=== PATIENT | female | born 1960 | race African-American/Black ===

== ENCOUNTER 2017-07-24 17:18 | Emergency (ER) | payer OTHER ==
[~2017-07-24] VITALS: Ht 180.3 cm; Wt 95.5 kg
[2017-07-24 17:34] VITALS: BP 133/94
== END 2017-07-24 19:40 | disposition left against medical advice (07) ==
LOC: EMS 17:22
DX: M54.6 Pain in thoracic spine (principal); G89.29 Other chronic pain; M19.90 Unspecified osteoarthritis, unspecified site; F17.210 Nicotine dependence, cigarettes, uncomplicated; Z53.21 Procedure and treatment not carried out due to patient leaving prior to being seen by health care provider

== ENCOUNTER 2018-02-02 11:40 | Emergency (ER) | payer MEDICAID, OTHER ==
[~2018-02-02] VITALS: Ht 180.3 cm; Wt 88.6 kg
[2018-02-02] MEDS ORDERED: METH10 PO (12:16)
[2018-02-02] MEDS ORDERED: CLON-570 PO (12:16)
[2018-02-02] MEDS ORDERED: BUPR100 PO (12:16)
[2018-02-02] MEDS ORDERED: BACITRACIN 0.9 GM PACKET OINTMENT TP ONE (13:00)
[2018-02-02 13:06] VITALS: BP 160/103
== END 2018-02-02 13:56 | disposition home or self-care (01) ==
LOC: EMS 11:50
DX: L73.9 Follicular disorder, unspecified (principal); F17.210 Nicotine dependence, cigarettes, uncomplicated; M19.90 Unspecified osteoarthritis, unspecified site; Z79.899 Other long term (current) drug therapy
CPT/HCPCS: 99282

== ENCOUNTER 2018-12-16 10:29 | Emergency (ER) | payer MEDICAID ==
[~2018-12-16] VITALS: Ht 180.3 cm; Wt 84.1 kg
[~2018-12-16 10:29] MED LIST: BUPR100 PO; CLON-570 PO; METH10 PO
[2018-12-16] MEDS ORDERED: AMLO-511 PO (10:45)
[2018-12-16] MEDS ORDERED: DIAZEPAM 5 MG TABLET PO ONE (11:30)
[2018-12-16] MEDS ORDERED: KETOROLAC TROMETHAMINE 30 MG/ML VIAL IM ONE (11:30)
[2018-12-16 13:41] VITALS: BP 136/86
== END 2018-12-16 14:30 | disposition home or self-care (01) ==
LOC: EMS 10:31
DX: M54.5 Low back pain (principal); M19.90 Unspecified osteoarthritis, unspecified site; G89.29 Other chronic pain; F17.210 Nicotine dependence, cigarettes, uncomplicated
CPT/HCPCS: 96372; 99283; J1885

== ENCOUNTER 2022-07-10 08:03 | Emergency (ER) | payer MEDICAID ==
[~2022-07-10] VITALS: Ht 175.3 cm; Wt 84.1 kg
[~2022-07-10 08:03] MED LIST changes: +AMLO-257 PO; +BUPR-345 PO; -BUPR100 PO; -CLON-570 PO; +CLON0.1T2 PO
[2022-07-10] MEDS ORDERED: BUSP5TAB20 PO (08:26)
[2022-07-10] MEDS ORDERED: HYDR-4808 PO (08:26)
[2022-07-10 09:57] LABS: HEMATOCRIT 43.4 % (36-46); LYMPHOCYTES # (AUTO) 0.8 K/uL (1.0-4.8); LYMPHOCYTES % (AUTO) 29.3 % (22.0-44.0); MEAN CORPUSCULAR HGB CONC 32.3 G/dL (31.0-37.0); MEAN CORPUSCULAR VOLUME 84 fL (80-100); MONOCYTES # (AUTO) 0.4 K/uL (0.1-1.0); MONOCYTES % (AUTO) 14.7 % (2.0-9.0); NEUTROPHILS # (AUTO) 1.4 K/uL (1.8-7.7); PLATELET COUNT (AUTO) 197 K/uL (150-450); RED BLOOD CELL COUNT(AUTO) 5.18 MIL/uL (4.00-5.20); RED CELL DISTRIBUTION WIDTH 14.2 % (11.5-14.5)
[2022-07-10 10:22] LABS: ANION GAP 9 mmol/L (8-16); CALCIUM, TOTAL 9.7 mg/dL (8.8-10.5); CARBON DIOXIDE 26 mmol/L (22-29); CHLORIDE 103 mmol/L (98-107); CREATININE 0.92 mg/dL (0.60-1.30); GLUCOSE,RANDOM 93 mg/dL (70-110); POTASSIUM 3.9 mmol/L (3.5-5.1); SODIUM SERUM 138 mmol/L (136-145); UREA NITROGEN, BLOOD 11 mg/dL (7-18)
[2022-07-10 10:25] LABS: GLOMERULAR FILTR. RATE CALC > 60 mL/min (>60)
[2022-07-10 10:27] LABS: ALANINE AMINOTRANSFERASE 134 U/L (12-78); ALBUMIN 3.8 g/dL (3.4-5.0); ALKALINE PHOSPHATASE 162 U/L (46-116); ASPARTATE AMINOTRANSFERASE 81 U/L (15-37); BILIRUBIN,TOTAL 0.4 mg/dL (0.1-1.0)
[2022-07-10 10:28] LABS: B-TYPE NATRIURETIC PEPTIDE 8 pg/mL (0-100)
[2022-07-10] MEDS ORDERED: PredniSONE 20 MG TABLET PO ONE (10:30)
[2022-07-10] MEDS ORDERED: IPRATROPIUM BROMIDE 0.5 MG/2.5 ML NEB SOLUTION NEB ONE (10:30)
[2022-07-10] MEDS ORDERED: ALBUTEROL SULFATE 2.5 MG/0.5 ML NEB SOLUTION NEB ONE ×2 (10:30→12:30)
[2022-07-10 11:13] LABS: COVID AG,FIA SOURCE NASAL SWAB
[2022-07-10 11:36] LABS: INFLUENZA TYPE A NEGATIVE FOR TYPE A (NEGATIVE); INFLUENZA TYPE B NEGATIVE FOR TYPE B (NEGATIVE)
[2022-07-10] MEDS ORDERED: BUSP30TA2 PO (12:33)
[2022-07-10] MEDS ORDERED: BUPR-317 PO (12:33)
[2022-07-10] MEDS ORDERED: AMLO10TA55 PO (12:33)
[2022-07-10] MEDS ORDERED: HYDR50CA6 PO (12:33)
[2022-07-10] MEDS ORDERED: PRED-554 PO ×2 (13:22→13:43)
[2022-07-10] MEDS ORDERED: ALBU8HFA IH ×2 (13:22→13:43)
[2022-07-10 13:44] VITALS: BP 110/68
== END 2022-07-10 13:46 | disposition home or self-care (01) ==
LOC: EMS 08:31
DX: J44.9 Chronic obstructive pulmonary disease, unspecified (principal); M19.90 Unspecified osteoarthritis, unspecified site; F17.210 Nicotine dependence, cigarettes, uncomplicated; Z20.822 Contact with and (suspected) exposure to COVID-19
CPT/HCPCS: 99285; 71045; 87426; 80053; 83880; 84484; 85025; 87804; 36415; 94640; 93005; J7512; J7613

== ENCOUNTER 2022-09-24 08:27 | Emergency (ER) | payer MEDICAID ==
[~2022-09-24] VITALS: Ht 175.3 cm; Wt 81.8 kg
[~2022-09-24 08:27] MED LIST changes: +ALBU8HFA IH; -AMLO-257 PO; +AMLO10TA55 PO; +BUPR-317 PO; -BUPR-345 PO; +BUSP30TA2 PO; -CLON0.1T2 PO; +HYDR50CA6 PO; -METH10 PO; +PRED-554 PO
[2022-09-24 08:41] VITALS: BP 133/77
[2022-09-24] MEDS ORDERED: TRAM-559 PO (09:05)
[2022-09-24] MEDS ORDERED: PENI500T2 PO (09:05)
== END 2022-09-24 09:12 | disposition home or self-care (01) ==
LOC: EMS 08:34
DX: K04.7 Periapical abscess without sinus (principal); K08.89 Other specified disorders of teeth and supporting structures; M19.90 Unspecified osteoarthritis, unspecified site; G89.29 Other chronic pain; M54.9 Dorsalgia, unspecified; F17.210 Nicotine dependence, cigarettes, uncomplicated; Z98.890 Other specified postprocedural states
CPT/HCPCS: 99283; Z7502

== ENCOUNTER 2022-10-28 11:14 | Emergency (ER) | payer MEDICAID ==
[~2022-10-28] VITALS: Ht 175.3 cm; Wt 81.8 kg
[~2022-10-28 11:14] MED LIST changes: +PENI500T2 PO; -PRED-554 PO; +TRAM-559 PO
[2022-10-28 11:19] VITALS: BP 124/103
[2022-10-28 12:07] LABS: COVID AG,FIA SOURCE NASAL SWAB
[2022-10-28] MEDS ORDERED: ALBUTEROL SULFATE 2.5 MG/0.5 ML NEB SOLUTION NEB ONE ×2 (12:15→12:27)
[2022-10-28] MEDS ORDERED: IPRATROPIUM BROMIDE 0.5 MG/2.5 ML NEB SOLUTION NEB ONE ×2 (12:15→12:27)
[2022-10-28 12:37] LABS: INFLUENZA TYPE A NEGATIVE FOR TYPE A (NEGATIVE); INFLUENZA TYPE B NEGATIVE FOR TYPE B (NEGATIVE)
[2022-10-28] MEDS ORDERED: BENZ-39 PO (12:52)
[2022-10-29] MEDS ORDERED: NIRM1TAB4 PO (11:34)
== END 2022-10-28 13:10 | disposition home or self-care (01) ==
LOC: EMS 11:20
DX: U07.1 COVID-19 (principal); M19.90 Unspecified osteoarthritis, unspecified site; G89.29 Other chronic pain; M54.9 Dorsalgia, unspecified; F17.210 Nicotine dependence, cigarettes, uncomplicated; Z98.890 Other specified postprocedural states
CPT/HCPCS: 87804; 94640; 99283

== ENCOUNTER 2023-02-12 09:57 | Emergency (ER) | payer MEDICAID ==
[~2023-02-12] VITALS: Ht 180.3 cm; Wt 86.4 kg
[~2023-02-12 09:57] MED LIST changes: +ALBU18HF12 IH; -ALBU8HFA IH; +BENZ-39 PO; +NIRM1TAB4 PO
[2023-02-12 10:02] VITALS: TEMP 98.6
[2023-02-12 10:37] LABS: APPEARANCE,URINE HAZY (CLEAR); BILIRUBIN,URINE NEGATIVE (NEGATIVE); GLUCOSE, URINE (UA) NEGATIVE (NEGATIVE); KETONES,URINE NEGATIVE (NEGATIVE); LEUKOCYTE ESTERASE ,URINE LARGE (NEGATIVE); NITRATE,URINE NEGATIVE (NEGATIVE); OCCULT BLOOD,URINE LARGE (NEGATIVE); PH,URINE 5.5 (5.0-8.0); PROTEIN,URINE 30-70 mg/dL (NEGATIVE); SPECIFIC GRAVITIY, URINE 1.009 (1.003-1.030); UROBILINOGEN,URINE <=1.0 mg/dL (<=1.0)
[2023-02-12 11:19] LABS: BACTERIA,URINE Few /HPF (None Seen); SQUAMOUS EPITHELIAL CELL,UR Few /LPF (None Seen)
[2023-02-12] MEDS ORDERED: NITR-75 PO (11:41)
[2023-02-12] MEDS ORDERED: IBUP-1492 PO (11:41)
[2023-02-12] MEDS ORDERED: PHEN-846 PO (11:41)
[2023-02-12] MEDS ORDERED: IBUPROFEN 600 MG TABLET PO ONE (11:45)
[2023-02-12 11:57] VITALS: BP 140/96; PULSE 92; RESP 18
== END 2023-02-12 11:59 | disposition home or self-care (01) ==
LOC: EMS 09:59
DX: N39.0 Urinary tract infection, site not specified (principal); I10 Essential (primary) hypertension; G89.29 Other chronic pain; J44.9 Chronic obstructive pulmonary disease, unspecified; F17.210 Nicotine dependence, cigarettes, uncomplicated
CPT/HCPCS: 81001; 87086; 87186; 99283

== ENCOUNTER 2023-03-07 06:55 | Emergency (ER) | payer MEDICAID ==
[~2023-03-07] VITALS: Ht 175.3 cm; Wt 88.0 kg
[~2023-03-07 06:55] MED LIST changes: +IBUP-1492 PO; -NIRM1TAB4 PO; +NITR-75 PO; -PENI500T2 PO; +PHEN-846 PO; -TRAM-559 PO
[2023-03-07 07:47] LABS: APPEARANCE,URINE HAZY (CLEAR); BILIRUBIN,URINE NEGATIVE (NEGATIVE); GLUCOSE, URINE (UA) NEGATIVE (NEGATIVE); KETONES,URINE NEGATIVE (NEGATIVE); LEUKOCYTE ESTERASE ,URINE LARGE (NEGATIVE); NITRATE,URINE POSITIVE (NEGATIVE); OCCULT BLOOD,URINE MODERATE (NEGATIVE); PH,URINE 5.5 (5.0-8.0); PROTEIN,URINE TRACE mg/dL (NEGATIVE); SPECIFIC GRAVITIY, URINE 1.014 (1.003-1.030); UROBILINOGEN,URINE <=1.0 mg/dL (<=1.0)
[2023-03-07 08:28] LABS: BACTERIA,URINE Moderate /HPF (None Seen); SQUAMOUS EPITHELIAL CELL,UR Moderate /LPF (None Seen)
[2023-03-07] MEDS ORDERED: CefTRIAXone SODIUM 1 GM/VIAL IM ONE (10:15)
[2023-03-07] MEDS ORDERED: LIDOCAINE/PF 1% 2 ML VIAL IM ONE (10:15)
[2023-03-07 10:19] VITALS: BP 164/92; PULSE 80; RESP 18; TEMP 98.5
[2023-03-07] MEDS ORDERED: PHEN-846 PO ×2 (10:31→12:05)
[2023-03-07] MEDS ORDERED: SULF-261 PO ×2 (10:31→12:06)
== END 2023-03-07 12:41 | disposition home or self-care (01) ==
LOC: EMS 06:56
DX: N39.0 Urinary tract infection, site not specified (principal); G89.29 Other chronic pain; M54.9 Dorsalgia, unspecified; J44.9 Chronic obstructive pulmonary disease, unspecified; F17.210 Nicotine dependence, cigarettes, uncomplicated; Z98.890 Other specified postprocedural states
CPT/HCPCS: 99283; 81001; 87086; 87186; 96372; J0696; J3490

== ENCOUNTER 2023-04-05 06:54 | Emergency (ER) | payer MEDICAID ==
[~2023-04-05] VITALS: Ht 172.7 cm; Wt 90.0 kg
[~2023-04-05 06:54] MED LIST changes: +SULF-261 PO
[2023-04-05 07:14] VITALS: TEMP 97.9
[2023-04-05 07:26] VITALS: BP 136/88; PULSE 74; RESP 16
[2023-04-05] MEDS ORDERED: IBUPROFEN 600 MG TABLET PO ONE (07:45)
[2023-04-05] MEDS ORDERED: ChlordiazePOXIDE HCL 25 MG CAPSULE PO ONE (07:45)
[2023-04-05] MEDS ORDERED: IBUP-1492 PO (08:07)
== END 2023-04-05 08:53 | disposition home or self-care (01) ==
LOC: EMS 06:56
DX: S60.211A Contusion of right wrist, initial encounter (principal); F10.239 Alcohol dependence with withdrawal, unspecified; F41.9 Anxiety disorder, unspecified; F32.A Depression, unspecified; G89.29 Other chronic pain; M54.9 Dorsalgia, unspecified; F17.210 Nicotine dependence, cigarettes, uncomplicated; Z98.890 Other specified postprocedural states; W19.XXXA Unspecified fall, initial encounter; Y93.89 Activity, other specified; Y92.89 Other specified places as the place of occurrence of the external cause; Y99.8 Other external cause status; Y90.9 Presence of alcohol in blood, level not specified
CPT/HCPCS: 99283

== ENCOUNTER 2023-04-11 07:17 | Emergency (ER) | payer MEDICAID ==
[~2023-04-11] VITALS: Ht 170.2 cm; Wt 84.1 kg
[~2023-04-11 07:17] MED LIST changes: -ALBU18HF12 IH; -BENZ-39 PO; -NITR-75 PO; -PHEN-846 PO; -SULF-261 PO
[2023-04-11 07:21] VITALS: TEMP 98.2
[2023-04-11] MEDS ORDERED: LIB25 PO (08:06)
[2023-04-11 08:50] VITALS: BP 135/82; PULSE 87; RESP 18
== END 2023-04-11 09:48 | disposition home or self-care (01) ==
LOC: EMS 07:17
DX: S63.501A Unspecified sprain of right wrist, initial encounter (principal); F10.239 Alcohol dependence with withdrawal, unspecified; F41.9 Anxiety disorder, unspecified; F32.A Depression, unspecified; J44.9 Chronic obstructive pulmonary disease, unspecified; G89.29 Other chronic pain; M54.9 Dorsalgia, unspecified; B19.20 Unspecified viral hepatitis C without hepatic coma; F17.210 Nicotine dependence, cigarettes, uncomplicated; Z87.440 Personal history of urinary (tract) infections; X58.XXXA Exposure to other specified factors, initial encounter; Y93.89 Activity, other specified; Y92.89 Other specified places as the place of occurrence of the external cause; Y99.8 Other external cause status
CPT/HCPCS: 99283

== ENCOUNTER 2023-06-26 06:12 | Emergency (ER) | payer MEDICAID ==
[~2023-06-26] VITALS: Ht 180.3 cm; Wt 90.0 kg
[~2023-06-26 06:12] MED LIST changes: +LIB25 PO
[2023-06-26 06:29] VITALS: TEMP 98.4
[2023-06-26 07:11] LABS: APPEARANCE,URINE CLEAR (CLEAR); BILIRUBIN,URINE NEGATIVE (NEGATIVE); COLOR,URINE LIGHT YELLOW (YELLOW); GLUCOSE, URINE (UA) NEGATIVE (NEGATIVE); KETONES,URINE NEGATIVE (NEGATIVE); LEUKOCYTE ESTERASE ,URINE SMALL (NEGATIVE); NITRATE,URINE NEGATIVE (NEGATIVE); OCCULT BLOOD,URINE MODERATE (NEGATIVE); PH,URINE 6.5 (5.0-8.0); PROTEIN,URINE TRACE mg/dL (NEGATIVE); SPECIFIC GRAVITIY, URINE 1.022 (1.003-1.030); UROBILINOGEN,URINE <=1.0 mg/dL (<=1.0)
[2023-06-26 07:25] LABS: BACTERIA,URINE Few /HPF (None Seen); SQUAMOUS EPITHELIAL CELL,UR Few /LPF (None Seen)
[2023-06-26] MEDS ORDERED: CEPH-558 PO (09:07)
[2023-06-26] MEDS ORDERED: PHEN-674 PO (09:07)
[2023-06-26 09:15] VITALS: BP 138/86; PULSE 74; RESP 17
== END 2023-06-26 09:20 | disposition home or self-care (01) ==
LOC: EMS 06:12
DX: N39.0 Urinary tract infection, site not specified (principal); F41.9 Anxiety disorder, unspecified; F32.A Depression, unspecified; G89.29 Other chronic pain; M54.9 Dorsalgia, unspecified; J44.9 Chronic obstructive pulmonary disease, unspecified; F17.210 Nicotine dependence, cigarettes, uncomplicated; Z87.440 Personal history of urinary (tract) infections
CPT/HCPCS: 81001; 87086; 87186; 99283

== ENCOUNTER 2023-09-23 08:24 | Emergency (ER) | payer MEDICAID ==
[~2023-09-23] VITALS: Ht 180.3 cm; Wt 72.7 kg
[~2023-09-23 08:24] MED LIST changes: +CEPH-558 PO; +CHLO25CA6 PO; -LIB25 PO; +PHEN-674 PO
[2023-09-23] MEDS ORDERED: ARIP2TAB3 PO (08:33)
[2023-09-23] MEDS ORDERED: HYDR-4808 PO (08:34)
[2023-09-23 08:37] VITALS: BP 136/77; PULSE 82; RESP 18; TEMP 98.2
[2023-09-23 09:10] LABS: APPEARANCE,URINE HAZY (CLEAR); BILIRUBIN,URINE NEGATIVE (NEGATIVE); COLOR,URINE YELLOW (YELLOW); GLUCOSE, URINE (UA) NEGATIVE (NEGATIVE); KETONES,URINE NEGATIVE (NEGATIVE); LEUKOCYTE ESTERASE ,URINE LARGE (NEGATIVE); NITRATE,URINE NEGATIVE (NEGATIVE); OCCULT BLOOD,URINE LARGE (NEGATIVE); PROTEIN,URINE 30-70 mg/dL (NEGATIVE); SPECIFIC GRAVITIY, URINE 1.029 (1.003-1.030); UROBILINOGEN,URINE <=1.0 mg/dL (<=1.0)
[2023-09-23 09:25] LABS: BACTERIA,URINE Moderate /HPF (None Seen); SQUAMOUS EPITHELIAL CELL,UR Few /LPF (None Seen); WBC,URINE 26-50 /HPF (0-5)
[2023-09-23] MEDS ORDERED: CefTRIAXone 1 GM/DEXTROSE 50 ML IV ONE (09:30)
[2023-09-23] MEDS ORDERED: PHENAZOPYRIDINE HCL 100 MG TABLET PO ONE (09:30)
[2023-09-23] MEDS ORDERED: CefTRIAXone SODIUM 1 GM/VIAL IM ONE (09:45)
[2023-09-23] MEDS ORDERED: LIDOCAINE/PF 1% 2 ML VIAL IM ONE (09:45)
[2023-09-23 10:23] LABS: BASOPHILS % (AUTO) 1.2 % (0.0-2.0); HEMATOCRIT 41.2 % (36-46); HEMOGLOBIN 13.5 g/dL (12.0-16.0); LYMPHOCYTES # (AUTO) 1.6 K/uL (1.0-4.8); LYMPHOCYTES % (AUTO) 29.3 % (22.0-44.0); MEAN CORPUSCULAR HEMOGLOBIN 28.8 pg (26.0-34.0); MEAN CORPUSCULAR HGB CONC 32.9 G/dL (31.0-37.0); MEAN CORPUSCULAR VOLUME 88 fL (80-100); MONOCYTES # (AUTO) 0.6 K/uL (0.1-1.0); MONOCYTES % (AUTO) 11.1 % (2.0-9.0); NEUTROPHILS # (AUTO) 3.2 K/uL (1.8-7.7); NEUTROPHILS % (AUTO) 56.4 % (40.0-70.0); PLATELET COUNT (AUTO) 223 K/uL (150-450); RED CELL DISTRIBUTION WIDTH 14.9 % (11.5-14.5); WHITE BLOOD COUNT (AUTO) 5.6 K/uL (4.5-11.0)
[2023-09-23 10:25] LABS: ANION GAP 8 mmol/L (8-16); CALCIUM, TOTAL 9.3 mg/dL (8.8-10.5); CARBON DIOXIDE 28 mmol/L (22-29); CHLORIDE 104 mmol/L (98-107); CREATININE 0.72 mg/dL (0.60-1.30); GLOMERULAR FILTR. RATE CALC > 60 mL/min (>60); GLUCOSE,RANDOM 92 mg/dL (70-110); POTASSIUM 3.8 mmol/L (3.5-5.1); SODIUM SERUM 140 mmol/L (136-145); UREA NITROGEN, BLOOD 19 mg/dL (7-18)
[2023-09-23 10:36] LABS: ALANINE AMINOTRANSFERASE 35 U/L (12-78); ALBUMIN 3.7 g/dL (3.4-5.0); ALKALINE PHOSPHATASE 125 U/L (46-116); ASPARTATE AMINOTRANSFERASE 28 U/L (15-37); BILIRUBIN,TOTAL 0.5 mg/dL (0.1-1.0); HCG,QUANTITATIVE 2 mIU/mL (0-6); TOTAL PROTEIN, SERUM 7.1 g/dL (6.4-8.2)
[2023-09-23] MEDS ORDERED: CEPH-558 PO (10:54)
[2023-09-23] MEDS ORDERED: PHEN-846 PO (10:55)
== END 2023-09-23 11:02 | disposition home or self-care (01) ==
LOC: EMS 08:33
DX: N39.0 Urinary tract infection, site not specified (principal); F10.20 Alcohol dependence, uncomplicated; F41.9 Anxiety disorder, unspecified; F32.A Depression, unspecified; G89.29 Other chronic pain; J44.9 Chronic obstructive pulmonary disease, unspecified; M54.9 Dorsalgia, unspecified; F17.210 Nicotine dependence, cigarettes, uncomplicated; Z98.890 Other specified postprocedural states
CPT/HCPCS: 99283; 80053; 81001; 84702; 85025; 36415; 87086; 87186; 96372; J0696; J3490

== ENCOUNTER 2024-05-01 14:33 | Emergency (ER) | payer MEDICAID ==
[~2024-05-01] VITALS: Ht 180.3 cm; Wt 84.1 kg
[~2024-05-01 14:33] MED LIST changes: +ARIP2TAB3 PO; -BUPR-317 PO; +BUPR-562 PO; -CHLO25CA6 PO; +HYDR-4808 PO; -HYDR50CA6 PO; -IBUP-1492 PO; -PHEN-674 PO; +PHEN-846 PO
[2024-05-01 14:42] VITALS: BP 118/68; PULSE 91; RESP 18; TEMP 98.4; O2SAT 100
[2024-05-01 15:03] LABS: APPEARANCE,URINE HAZY (CLEAR); BILIRUBIN,URINE NEGATIVE (NEGATIVE); COLOR,URINE YELLOW (YELLOW); GLUCOSE, URINE (UA) NEGATIVE (NEGATIVE); KETONES,URINE NEGATIVE (NEGATIVE); LEUKOCYTE ESTERASE ,URINE LARGE (NEGATIVE); NITRATE,URINE NEGATIVE (NEGATIVE); OCCULT BLOOD,URINE MODERATE (NEGATIVE); PROTEIN,URINE 30-70 mg/dL (NEGATIVE); SPECIFIC GRAVITIY, URINE 1.023 (1.003-1.030)
[2024-05-01 15:16] LABS: BACTERIA,URINE Few /HPF (None Seen); SQUAMOUS EPITHELIAL CELL,UR Rare /LPF (None Seen); WBC,URINE 51-100 /HPF (0-5)
[2024-05-01] MEDS ORDERED: CEPH-558 PO (18:39)
[2024-05-01] MEDS ORDERED: PHEN-846 PO (18:39)
== END 2024-05-01 18:43 | disposition home or self-care (01) ==
LOC: EMS 14:33
DX: F10.20 Alcohol dependence, uncomplicated (principal); F41.9 Anxiety disorder, unspecified; F32.A Depression, unspecified; G89.29 Other chronic pain; M54.9 Dorsalgia, unspecified; J44.9 Chronic obstructive pulmonary disease, unspecified; F17.210 Nicotine dependence, cigarettes, uncomplicated; Z98.890 Other specified postprocedural states; Y90.9 Presence of alcohol in blood, level not specified
CPT/HCPCS: 81001; 87086; 87186; 99283

== ENCOUNTER → 2024-12-24 | Emergency (ER) | payer MEDICAID ==
[~2024-12-24] VITALS: Ht 180.3 cm; Wt 90.9 kg
[~2024-12-24] MED LIST changes: -BUPR-562 PO; +BUPR-722 PO
[2024-12-24 19:51] VITALS: TEMP 98.2
[2024-12-24 20:48] LABS: BASOPHILS % (AUTO) 1.2 % (0.0-2.0); EOSINOPHILS % (AUTO) 2.7 % (1.0-6.0); HEMATOCRIT 42.6 % (36-46); HEMOGLOBIN 13.7 g/dL (12.0-16.0); LYMPHOCYTES # (AUTO) 1.3 K/uL (1.0-4.8); LYMPHOCYTES % (AUTO) 28.1 % (22.0-44.0); MEAN CORPUSCULAR HEMOGLOBIN 27.8 pg (26.0-34.0); MEAN CORPUSCULAR HGB CONC 32.1 G/dL (31.0-37.0); MEAN CORPUSCULAR VOLUME 87 fL (80-100); MONOCYTES # (AUTO) 0.5 K/uL (0.1-1.0); MONOCYTES % (AUTO) 9.7 % (2.0-9.0); NEUTROPHILS # (AUTO) 2.7 K/uL (1.8-7.7); NEUTROPHILS % (AUTO) 58.3 % (40.0-70.0); PLATELET COUNT (AUTO) 231 K/uL (150-450); RED BLOOD CELL COUNT(AUTO) 4.92 MIL/uL (4.00-5.20); RED CELL DISTRIBUTION WIDTH 14.4 % (11.5-14.5); WHITE BLOOD COUNT (AUTO) 4.7 K/uL (4.5-11.0)
[2024-12-24 20:53] LABS: CALCIUM, TOTAL 9.8 mg/dL (8.8-10.5); CARBON DIOXIDE 30 mmol/L (22-29); CREATININE 0.79 mg/dL (0.60-1.30); GLOMERULAR FILTR. RATE CALC > 60 mL/min (>60); GLUCOSE,RANDOM 129 mg/dL (70-110); POTASSIUM 3.8 mmol/L (3.5-5.1); SODIUM SERUM 144 mmol/L (136-145); UREA NITROGEN, BLOOD 14 mg/dL (7-18)
[2024-12-24 21:02] LABS: CREATINE KINASE, TOTAL ONLY 174 U/L (26-192); TROPONIN I-HIGH SENSITIVITY 7 ng/L (<51)
[2024-12-24 21:10] LABS: B-TYPE NATRIURETIC PEPTIDE 6 pg/mL (0-100)
[2024-12-24 21:25] LABS: APPEARANCE,URINE CLEAR (CLEAR); BILIRUBIN,URINE NEGATIVE (NEGATIVE); COLOR,URINE LIGHT YELLOW (YELLOW); GLUCOSE, URINE (UA) NEGATIVE (NEGATIVE); KETONES,URINE NEGATIVE (NEGATIVE); LEUKOCYTE ESTERASE ,URINE NEGATIVE (NEGATIVE); NITRATE,URINE NEGATIVE (NEGATIVE); OCCULT BLOOD,URINE MODERATE (NEGATIVE); PH,URINE 5.5 (5.0-8.0); PROTEIN,URINE NEGATIVE (NEGATIVE); SPECIFIC GRAVITIY, URINE 1.023 (1.003-1.030); UROBILINOGEN,URINE <=1.0 mg/dL (<=1.0)
[2024-12-24 21:33] LABS: BACTERIA,URINE Few /HPF (None Seen); SQUAMOUS EPITHELIAL CELL,UR Few /LPF (None Seen); WBC,URINE 0-2 /HPF (0-5)
[2024-12-24 22:44] VITALS: BP 128/77; PULSE 60; RESP 15; O2SAT 95
[2024-12-25 14:49] LABS: ANION GAP 9 mmol/L (8-16); CHLORIDE 105 mmol/L (98-107)
== END | disposition home or self-care (01) ==
LOC: EMS 19:28
DX: R60.0 Localized edema (principal); I10 Essential (primary) hypertension; R06.02 Shortness of breath; J44.9 Chronic obstructive pulmonary disease, unspecified; F17.210 Nicotine dependence, cigarettes, uncomplicated; Z86.19 Personal history of other infectious and parasitic diseases; Z87.440 Personal history of urinary (tract) infections; Z79.899 Other long term (current) drug therapy
CPT/HCPCS: 71045; 80048; 81001; 82550; 83880; 84484; 85025; 85379; 87040; 93005; 99285; 36415-L1; 36415-TC

== ENCOUNTER 2025-01-19 08:01 | Emergency (ER) | payer MEDICAID ==
[~2025-01-19] VITALS: Ht 180.3 cm; Wt 88.6 kg
[~2025-01-19 08:01] MED LIST changes: +ALBU18HF12 PO; -ARIP2TAB3 PO; -CEPH-558 PO; -HYDR-4808 PO; +HYDR50CA6 PO; +METH5SOL20 PO; -PHEN-846 PO
[2025-01-19 08:10] VITALS: TEMP 97.9
[2025-01-19] MEDS: METHADONE HCL 10 MG/5 ML SOLUTION ORAL.SYG PO ONE (09:38)
[2025-01-19 09:40] VITALS: BP 138/88; PULSE 74; RESP 18; O2SAT 98
== END 2025-01-19 09:47 | disposition home or self-care (01) ==
LOC: EMS 08:04
DX: F11.23 Opioid dependence with withdrawal (principal); J44.9 Chronic obstructive pulmonary disease, unspecified; I10 Essential (primary) hypertension; F41.9 Anxiety disorder, unspecified; F32.A Depression, unspecified; Z86.19 Personal history of other infectious and parasitic diseases; Z87.440 Personal history of urinary (tract) infections; Z79.899 Other long term (current) drug therapy
CPT/HCPCS: 99283

== ENCOUNTER 2025-02-10 17:18 | Emergency (ER) | payer MEDICAID ==
[~2025-02-10] VITALS: Ht 175.3 cm; Wt 88.6 kg
[2025-02-10 17:33] VITALS: BP 163/86; PULSE 89; RESP 19; TEMP 98.1; O2SAT 94
[2025-02-10] MEDS ORDERED: PRED-554 PO (17:49)
[2025-02-10] MEDS: ALBUTEROL SULFATE HFA 90 MCG/PUFF 8 GM INHALER IH ONE (18:42)
[2025-02-10] MEDS: PredniSONE 20 MG TABLET PO ONE (18:51)
[2025-02-10] MEDS: METHADONE HCL 10 MG TABLET PO ONE (18:53)
== END 2025-02-10 19:02 | disposition home or self-care (01) ==
LOC: EMS 17:18
DX: J44.89 Other specified chronic obstructive pulmonary disease (principal); Z76.0 Encounter for issue of repeat prescription; F41.9 Anxiety disorder, unspecified; I10 Essential (primary) hypertension; F32.A Depression, unspecified; F17.210 Nicotine dependence, cigarettes, uncomplicated; F11.90 Opioid use, unspecified, uncomplicated; Z98.890 Other specified postprocedural states; Z86.19 Personal history of other infectious and parasitic diseases; Z79.899 Other long term (current) drug therapy
CPT/HCPCS: 99283; 94640; J7512; J3535